=== PATIENT | female | born 1970 | race Caucasian/White ===

== ENCOUNTER 2018-03-02 15:57 | Emergency (ER) | payer MEDICARE, OTHER ==
[~2018-03-02] VITALS: Ht 172.7 cm; Wt 94.1 kg
[2018-03-02] MEDS ORDERED: predniSONE 20 mg tablet PO ONE (18:40)
[2018-03-02] MEDS ORDERED: PRED10TA23 PO (18:40)
[2018-03-02 18:46] VITALS: BP 135/85
== END 2018-03-02 18:47 | disposition home or self-care (01) ==
LOC: ER 15:57
DX: L27.1 Localized skin eruption due to drugs and medicaments taken internally (principal); T42.1X5A Adverse effect of iminostilbenes, initial encounter; Z79.899 Other long term (current) drug therapy; Y92.89 Other specified places as the place of occurrence of the external cause
CPT/HCPCS: 99283; J7512